=== PATIENT | male | born 1995 | race African-American/Black ===

== ENCOUNTER 2019-07-01 03:35 | Emergency (ER) | payer OTHER ==
[~2019-07-01] VITALS: Ht 182.9 cm; Wt 86.2 kg
[2019-07-01 08:30] VITALS: BP 124/79
== END 2019-07-01 08:53 | disposition home or self-care (01) ==
LOC: ER 03:35 → EEVIPCON 03:35 → ER 08:53
DX: S09.8XXA Other specified injuries of head, initial encounter (principal); T14.8XXA Other injury of unspecified body region, initial encounter; M25.512 Pain in left shoulder; M54.2 Cervicalgia; W20.8XXA Other cause of strike by thrown, projected or falling object, initial encounter; Y93.89 Activity, other specified; Y92.89 Other specified places as the place of occurrence of the external cause; Y99.8 Other external cause status
CPT/HCPCS: 70450; 70486; 72125; 73030